=== PATIENT | female | born 1960 | race Caucasian/White ===

== ENCOUNTER → 2018-03-26 | Outpatient (CLI) | payer BC | END | disposition home or self-care (01) | LOC: KCIC MAMMO 10:06 | DX: Z12.31 Encounter for screening mammogram for malignant neoplasm of breast (principal) | CPT/HCPCS: 77063; 77067 ==

== ENCOUNTER → 2018-04-16 | Outpatient (CLI) | payer BC ==
--- NOTE | 2018-04-16 13:48 | KCIC ---
Bilateral breast ultrasound: Reason for examination: Multiple nodules bilaterally on screening mammogram. Comparison is made to mammographic exam dated 03/26/2018. Bilateral whole breast ultrasound including evaluation of all 4 quadrants and the retroareolar and axillary regions of both breasts was performed. There are multiple small anechoic and hypoechoic circumscribed lesions throughout both breasts which are all subcentimeter in size and consistent with cysts, fibrocystic lesions or fibroadenoma. There are also probably a couple of small intramammary lymph nodes present. No solid suspicious-appearing nodules are seen. No abnormal appearing lymph nodes are seen in the axilla. IMPRESSION: Multiple small benign-appearing nodules consistent with cysts, fibrocystic lesions and fibroadenoma. No suspicious abnormalities are seen. Recommend 6 month sonographic follow-up. BI-RADS Category 3: Probably Benign. "Our facility is accredited by the [employer] Mammography [employer]." This patient's information has been entered into a reminder system for the patient to be notified with the results of her examination and a target date for the next mammogram. Electronically signed by: Nena Jasso MD (04/16/2018 1:44 PM) [id number]
== END | disposition home or self-care (01) ==
LOC: KCIC US 11:04
PROVIDERS: ATTEND Obstetrics & Gynecology
DX: R92.8 Other abnormal and inconclusive findings on diagnostic imaging of breast (principal)
CPT/HCPCS: 76641